=== PATIENT | female | born 1985 | race African-American/Black ===

== ENCOUNTER 2017-05-03 03:35 | Inpatient (IN) | payer OTHER ==
[~2017-05-03] VITALS: Ht 170.2 cm; Wt 81.6 kg
[~2017-05-03 03:35] MED LIST: FERR-63 PO; IBUP-779 PO; MULT-1146 PO; ONDA4TAB5; PNV1CAPS17
[2017-05-03] MEDS ORDERED: DEXT 5%/LR + PITOCIN 20UNITS/L 1,000 ML IV SCH ×2 (04:21→06:43)
[2017-05-03] MEDS ORDERED: MISOPROSTOL 100MCG TABLET VG SCH (04:30)
[2017-05-03] MEDS ORDERED: NALOXONE HCL 0.4 MG/ML 1ML VIAL IM PRN (04:30)
[2017-05-03] MEDS ORDERED: BUTORPHANOL TARTRATE 2 MG/ML VIAL IV PRN (04:30)
[2017-05-03] MEDS ORDERED: LIDOCAINE HCL 1% 20ML VIAL (Pyxis) INJ INFIL SCH (04:30)
[2017-05-03] MEDS: LACTATED RINGERS 1,000 ML IV SCH ×2 (04:47→05:31)
[2017-05-03] MEDS ORDERED: AMPICILLIN 2,000 MG in SODIUM CHLORIDE 0.9% 100 ML IV NR (05:00)
[2017-05-03 06:34] LABS: BASOPHILS % 0.3 % (0.0-2.0); EOSINOPHILS % 0.3 % (0.0-5.0); HEMOGLOBIN. 10.6 g/dL (12.0-16.0); LYMPHOCYTES % 20.9 % (20.0-50.0); MEAN CORPUSCULAR HEMOGLOBIN 26.1 pg (28.0-32.0); MEAN PLATELET VOLUME 8.5 fl (7.4-10.4); MONOCYTES % 7.1 % (2.0-8.0); NEUTROPHILS % 71.4 % (40.0-76.0); PLATELET 164 x1000/uL (130-400); RED BLOOD CELL COUNT 4.05 mill/uL (4.2-5.4)
[2017-05-03 06:43] LABS: PARTIAL THROMBOPLASTIN TIME 25.5 sec (24.0-34.0); PROTHROMBIN TIME 10.3 sec
[2017-05-03] MEDS ORDERED: IBUPROFEN 400MG TABLET PO PRN (06:45)
[2017-05-03] MEDS ORDERED: ACETAMINOPHEN WITH CODEINE 300/30MG TABLET PO PRN ×2 (06:45)
[2017-05-03 08:00] VITALS: BP 112/72
[2017-05-03 08:14] LABS: HEPATITIS B SURFACE ANTIGEN NEGATIVE; RUBELLA IGG 124.8 IU/mL (4.99-10)
[2017-05-03 09:00] VITALS: BP 111/71
[2017-05-03 09:33] LABS: CLARITY URINE CLOUDY (CLEAR); COLOR URINE RED (YELLOW); GLUCOSE URINE 2+ (NEGATIVE); KETONES URINE 1+ (NEGATIVE); LEUKOCYTE ESTERASE URINE TRACE (NEGATIVE); NITRITE URINE NEGATIVE (NEGATIVE); OCCULT BLOOD URINE 3+ (NEGATIVE); PROTEIN URINE 1+ (NEGATIVE); SPECIFIC GRAVITY URINE 1.013 (1.005-1.030)
[2017-05-03 09:59] LABS: *AMPHETAMINES SCREEN URINE NEGATIVE (NEGATIVE); *BARBITURATES SCREEN URINE NEGATIVE (NEGATIVE); *BENZODIAZEPINES SCREEN URINE NEGATIVE (NEGATIVE); *COCAINE SCREEN URINE NEGATIVE (NEGATIVE); CANNABINOID URINE SCREEN NEGATIVE (NEGATIVE); METHADONE URINE SCREEN NEGATIVE (NEGATIVE); OPIATES URINE SCREEN NEGATIVE (NEGATIVE); PHENCYCLIDINE URINE SCREEN NEGATIVE (NEGATIVE)
[2017-05-03] MEDS ORDERED: AMPICILLIN 1,000 MG in SODIUM CHLORIDE 0.9% 50 ML IV SCH (11:00)
[2017-05-03 16:00] VITALS: BP 119/69
[2017-05-03 20:00] VITALS: BP 155/93
[2017-05-03] MEDS ORDERED: RHO(D) IMMUNE GLOBULIN 300 MCG/SYR IM ONE (22:30)
[2017-05-04] VITALS: BP 121/81
[2017-05-04 06:28] LABS: BASOPHILS % 0.4 % (0.0-2.0); EOSINOPHILS % 1.3 % (0.0-5.0); HEMATOCRIT. 29.5 % (36.0-48.0); HEMOGLOBIN. 9.6 g/dL (12.0-16.0); LYMPHOCYTES % 21.8 % (20.0-50.0); MEAN CORPUSCULAR HEMOGLOBIN 25.3 pg (28.0-32.0); MEAN PLATELET VOLUME 7.9 fl (7.4-10.4); MONOCYTES % 7.8 % (2.0-8.0); NEUTROPHILS % 68.7 % (40.0-76.0); PLATELET 158 x1000/uL (130-400); RED BLOOD CELL COUNT 3.79 mill/uL (4.2-5.4); RED CELL DISTRIBUTION WIDTH 13.9 % (11.6-14.6)
[2017-05-04 08:00] VITALS: BP 113/81
== END 2017-05-04 16:30 | disposition home or self-care (01) | DRG 560 ==
LOC: OBSVTOIN 03:35 → L&D 03:35 → 7EST PP/OB 12:32
PROVIDERS: ADMIT Obstetrics & Gynecology; ATTEND Obstetrics & Gynecology
PROC: 10E0XZZ Delivery of Products of Conception, External Approach (ICD-10-PCS; principal; 2017-05-03 06:06)
DX: O80 Encounter for full-term uncomplicated delivery (principal); O62.9 Abnormality of forces of labor, unspecified; Z3A.38 38 weeks gestation of pregnancy
CPT/HCPCS: 36415; 80305; 81001; 85025; 85610; 85730; 86592; 86703; 86762; 86850; 86886; 86900; 87340; 90384; 99281; G0378; J0290; J0595; J2590; J7050; J7120

== ENCOUNTER 2019-04-15 13:20 | Observation (INO) | payer OTHER ==
[~2019-04-15] VITALS: Ht 172.7 cm; Wt 89.8 kg
[~2019-04-15 13:20] MED LIST changes: -IBUP-779 PO; -ONDA4TAB5
[2019-04-15] MEDS ORDERED: DEXT 5%/LR + PITOCIN 20UNITS/L 1,000 ML IV SCH (14:32)
[2019-04-15] MEDS ORDERED: NALOXONE HCL 0.4 MG/ML 1ML VIAL IM PRN (14:45)
[2019-04-15] MEDS ORDERED: METHYLERGONOVINE MALEATE 0.2 MG/ML IM PRN (14:45)
[2019-04-15] MEDS ORDERED: LIDOCAINE HCL 1% 20ML VIAL (Pyxis) INJ INFIL SCH (14:45)
[2019-04-15] MEDS ORDERED: BUTORPHANOL TARTRATE 2 MG/ML VIAL IV PRN (14:45)
[2019-04-15] MEDS ORDERED: LACTATED RINGERS 1,000 ML IV SCH (15:00)
[2019-04-15 15:59] LABS: CLARITY URINE CLEAR (CLEAR); COLOR URINE YELLOW (YELLOW); KETONES URINE TRACE (NEGATIVE); LEUKOCYTE ESTERASE URINE 1+ (NEGATIVE); NITRITE URINE NEGATIVE (NEGATIVE); OCCULT BLOOD URINE 3+ (NEGATIVE); PROTEIN URINE 1+ (NEGATIVE); SPECIFIC GRAVITY URINE 1.015 (1.005-1.030); UROBILINOGEN URINE 0.2 E.U./dL (0.2-1.0)
[2019-04-15] MEDS ORDERED: PENICILLIN G POTASSIUM 5 MMU in DEXT 5% WATER 100 ML IV SCH (16:00)
[2019-04-15 16:05] LABS: BASOPHILS % 0.5 % (0.0-2.0); EOSINOPHILS % 0.1 % (0.0-5.0); HEMATOCRIT. 33.6 % (36.0-48.0); HEMOGLOBIN. 10.9 g/dL (12.0-16.0); LYMPHOCYTES % 9.8 % (20.0-50.0); MEAN CORPUSCULAR HEMOGLOBIN 24.9 pg (28.0-32.0); MEAN CORPUSCULAR VOLUME 76.6 fL (81.0-99.0); MEAN PLATELET VOLUME 8.1 fl (7.4-10.4); MONOCYTES % 5.8 % (2.0-8.0); NEUTROPHILS % 83.8 % (40.0-76.0); PLATELET 235 x1000/uL (130-400); RED BLOOD CELL COUNT 4.39 mill/uL (4.2-5.4)
[2019-04-15 16:11] LABS: CANNABINOID URINE SCREEN NEGATIVE (NEGATIVE); PHENCYCLIDINE URINE SCREEN NEGATIVE (NEGATIVE)
[2019-04-15 16:12] LABS: *AMPHETAMINES SCREEN URINE NEGATIVE (NEGATIVE); *BARBITURATES SCREEN URINE NEGATIVE (NEGATIVE); *BENZODIAZEPINES SCREEN URINE NEGATIVE (NEGATIVE); *COCAINE SCREEN URINE NEGATIVE (NEGATIVE); METHADONE URINE SCREEN NEGATIVE (NEGATIVE); OPIATES URINE SCREEN NEGATIVE (NEGATIVE)
[2019-04-15 16:14] LABS: INR 0.9; PARTIAL THROMBOPLASTIN TIME 24.1 sec (23.4-31.0); PROTHROMBIN TIME 9.7 sec (9.6-11.0)
[2019-04-15 16:50] LABS: HEPATITIS B SURFACE ANTIGEN NEGATIVE
[2019-04-15] MEDS: TERBUTALINE SULFATE 1MG/ML VIAL SUBCUT PRN ×3 (17:32→19:18)
[2019-04-15] MEDS ORDERED: PENICILLIN G POTASSIUM 2.5 MMU in DEXTROSE 5% WATER 50 ML IV SCH (20:00)
== END 2019-04-15 20:30 | disposition home or self-care (01) ==
LOC: 8 EST LDRP 13:20
PROVIDERS: ADMIT Specialist; ATTEND Specialist
DX: O62.9 Abnormality of forces of labor, unspecified (principal); Z3A.35 35 weeks gestation of pregnancy
CPT/HCPCS: 36415; 76805; 76818; 80305; 81003; 85025; 85610; 85730; 86703; 86762; 86850; 86900; 86901; 87340; 96372; 99281; G0378; J2540; J3105; J7060; 59412; 96360; 96361; J7120

== ENCOUNTER 2019-05-01 23:37 | Inpatient (IN) | payer OTHER ==
[~2019-05-01] VITALS: Ht 170.2 cm; Wt 88.9 kg
[2019-05-01] MEDS ORDERED: DEXT 5%/LR + PITOCIN 20UNITS/L 1,000 ML IV SCH (23:47)
[2019-05-01] MEDS ORDERED: LACTATED RINGERS 1,000 ML IV SCH (23:47)
[2019-05-02] MEDS ORDERED: METHYLERGONOVINE MALEATE 0.2 MG/ML IM PRN
[2019-05-02] MEDS ORDERED: LIDOCAINE HCL 1% 20ML VIAL (Pyxis) INJ INFIL SCH
[2019-05-02] MEDS ORDERED: AMPICILLIN 2,000 MG in SODIUM CHLORIDE 0.9% 100 ML IV SCH ×2
[2019-05-02] MEDS ORDERED: BUTORPHANOL TARTRATE 2 MG/ML VIAL IV PRN
[2019-05-02] MEDS ORDERED: NALOXONE HCL 0.4 MG/ML 1ML VIAL IM PRN
[2019-05-02] MEDS ORDERED: BUTORPHANOL TARTRATE 2 MG/ML VIAL IM PRN (00:15)
[2019-05-02 00:28] LABS: BASOPHILS % 0.3 % (0.0-2.0); EOSINOPHILS % 0.4 % (0.0-5.0); HEMATOCRIT. 33.4 % (36.0-48.0); HEMOGLOBIN. 10.8 g/dL (12.0-16.0); LYMPHOCYTES % 22.4 % (20.0-50.0); MEAN CORPUSCULAR HEMOGLOBIN 24.8 pg (28.0-32.0); MEAN CORPUSCULAR VOLUME 76.6 fL (81.0-99.0); MEAN PLATELET VOLUME 8.3 fl (7.4-10.4); MONOCYTES % 7.6 % (2.0-8.0); NEUTROPHILS % 69.3 % (40.0-76.0); PLATELET 233 x1000/uL (130-400); RED BLOOD CELL COUNT 4.36 mill/uL (4.2-5.4); RED CELL DISTRIBUTION WIDTH 15.6 % (11.6-14.6)
[2019-05-02 00:37] LABS: INR 0.9; PROTHROMBIN TIME 9.7 sec (9.6-11.0)
[2019-05-02] MEDS ORDERED: DEXT 5%/LR + PITOCIN 20UNITS/L 1,000 ML IV SCH (01:08)
[2019-05-02] MEDS ORDERED: BENZOCAINE/LANOLIN/ALOE VERA SPRAY TOP PRN (01:15)
[2019-05-02] MEDS ORDERED: ACETAMINOPHEN WITH CODEINE 300/30MG TABLET PO PRN (01:15)
[2019-05-02] MEDS ORDERED: RHO(D) IMMUNE GLOBULIN 300 MCG/SYR IM PRN (01:15)
[2019-05-02] MEDS ORDERED: DIPHENHYDRAMINE 25MG CAPSULE PO PRN (01:15)
[2019-05-02] MEDS ORDERED: BISACODYL 10MG SUPP PR PRN (01:15)
[2019-05-02] MEDS ORDERED: LANOLIN OINT 7GM TUBE TOP PRN (01:15)
[2019-05-02] MEDS ORDERED: GLYCERIN/WITCH HAZEL LEAF MEDICATED PAD TOP PRN (01:15)
[2019-05-02 03:00] VITALS: BP 124/76
[2019-05-02 03:55] VITALS: BP 117/73
[2019-05-02 04:32] LABS: CLARITY URINE TURBID (CLEAR); KETONES URINE 2+ (NEGATIVE); LEUKOCYTE ESTERASE URINE 3+ (NEGATIVE); NITRITE URINE POSITIVE (NEGATIVE); OCCULT BLOOD URINE 3+ (NEGATIVE); PROTEIN URINE 3+ (NEGATIVE)
[2019-05-02 04:40] LABS: COLOR URINE BLOODY (YELLOW)
[2019-05-02 04:58] LABS: *AMPHETAMINES SCREEN URINE NEGATIVE (NEGATIVE)
[2019-05-02 04:59] LABS: *BARBITURATES SCREEN URINE NEGATIVE (NEGATIVE); *COCAINE SCREEN URINE NEGATIVE (NEGATIVE); CANNABINOID URINE SCREEN NEGATIVE (NEGATIVE); METHADONE URINE SCREEN NEGATIVE (NEGATIVE); OPIATES URINE SCREEN NEGATIVE (NEGATIVE); PHENCYCLIDINE URINE SCREEN NEGATIVE (NEGATIVE)
[2019-05-02 05:00] LABS: *BENZODIAZEPINES SCREEN URINE NEGATIVE (NEGATIVE)
[2019-05-02] MEDS ORDERED: AMPICILLIN 1,000 MG in SODIUM CHLORIDE 0.9% 50 ML IV SCH (06:00)
[2019-05-02 07:44] VITALS: BP 114/73
[2019-05-02] MEDS: SIMETHICONE 80MG TABLET CHEW PO SCH ×4 (08:38→20:44)
[2019-05-02] MEDS: MAGNESIUM/ALUMINUM HYDROXIDE/SIMETHICONE 30ML UDC PO SCH ×4 (08:38→20:44)
[2019-05-02] MEDS: PRENATAL VIT/FE FUMARATE/FA TABLET PO SCH (08:39)
[2019-05-02] MEDS: IBUPROFEN 400MG TABLET PO PRN ×2 (12:37→16:59)
[2019-05-02 15:56] VITALS: BP 101/63
[2019-05-02 20:15] VITALS: BP 107/70
[2019-05-02] MEDS: ACETAMINOPHEN WITH CODEINE 300/30MG TABLET PO PRN (20:43)
[2019-05-03] MEDS: IBUPROFEN 400MG TABLET PO PRN ×3 (02:44→18:07)
[2019-05-03 03:55] VITALS: BP 120/76
[2019-05-03] MEDS: MAGNESIUM/ALUMINUM HYDROXIDE/SIMETHICONE 30ML UDC PO SCH ×4 (06:49→18:04)
[2019-05-03] MEDS: ACETAMINOPHEN WITH CODEINE 300/30MG TABLET PO PRN ×2 (06:56→15:42)
[2019-05-03 07:29] LABS: BASOPHILS % 0.2 % (0.0-2.0); EOSINOPHILS % 1.6 % (0.0-5.0); HEMATOCRIT. 29.6 % (36.0-48.0); HEMOGLOBIN. 9.7 g/dL (12.0-16.0); MEAN CORPUSCULAR HEMOGLOBIN 25.1 pg (28.0-32.0); MEAN CORPUSCULAR VOLUME 76.9 fL (81.0-99.0); MEAN PLATELET VOLUME 7.9 fl (7.4-10.4); MONOCYTES % 8.7 % (2.0-8.0); NEUTROPHILS % 66.5 % (40.0-76.0); PLATELET 161 x1000/uL (130-400); RED BLOOD CELL COUNT 3.86 mill/uL (4.2-5.4); RED CELL DISTRIBUTION WIDTH 15.7 % (11.6-14.6)
[2019-05-03 07:45] VITALS: BP 116/83
[2019-05-03] MEDS: NITROFURANTOIN 100MG M/M CAPSULE PO SCH ×2 (08:40→21:21)
[2019-05-03] MEDS: PRENATAL VIT/FE FUMARATE/FA TABLET PO SCH (08:40)
[2019-05-03] MEDS: SIMETHICONE 80MG TABLET CHEW PO SCH ×4 (08:40→21:21)
[2019-05-03 16:20] VITALS: BP 99/90
[2019-05-03 19:30] VITALS: BP 100/60
[2019-05-04 08:00] VITALS: BP 110/71
[2019-05-04] MEDS: PRENATAL VIT/FE FUMARATE/FA TABLET PO SCH (08:30)
[2019-05-04] MEDS: MAGNESIUM/ALUMINUM HYDROXIDE/SIMETHICONE 30ML UDC PO SCH (08:30)
[2019-05-04] MEDS: SIMETHICONE 80MG TABLET CHEW PO SCH (08:30)
[2019-05-04] MEDS: NITROFURANTOIN 100MG M/M CAPSULE PO SCH (08:58)
[2019-05-04 16:27] LABS: HEPATITIS B SURFACE ANTIGEN NEGATIVE
== END 2019-05-04 12:25 | disposition home or self-care (01) | DRG 560 ==
LOC: 8 EST LDRP 23:37 → OBSVTOIN 23:37 → 8EST 05-02 02:34
PROVIDERS: ADMIT Obstetrics & Gynecology; ATTEND Obstetrics & Gynecology
PROC: 10E0XZZ Delivery of Products of Conception, External Approach (ICD-10-PCS; principal; 2019-05-02)
PROC: 3E0234Z Introduction of Serum, Toxoid and Vaccine into Muscle, Percutaneous Approach (ICD-10-PCS; 2019-05-02)
DX: O90.81 Anemia of the puerperium (principal); O86.20 Urinary tract infection following delivery, unspecified; O26.893 Other specified pregnancy related conditions, third trimester; D64.9 Anemia, unspecified; Z37.0 Single live birth; Z3A.40 40 weeks gestation of pregnancy; Z67.31 Type AB blood, Rh negative
CPT/HCPCS: 36415; 80305; 86592; 86703; 86762; 86850; 86886; 86900; 87340; 90384; 99281; G0378; J0290; J0595; J2310; J2590; J3490; J7050; J7120